=== PATIENT | male | born 1945 | race Caucasian/White ===

== ENCOUNTER 2016-10-24 15:24 | Inpatient (IN) | payer MEDICAID ==
[~2016-10-24] VITALS: Ht 162.6 cm; Wt 54.0 kg
--- NOTE | 2016-10-24 15:24 | NUR ---
NIURKARA 41 FROM [facility] FOR SOB, SPO2=82% FOOD MANAGEMENT AIDE, BREATHING TREATMENT X 1 IN FIELD. PT PLACED IN GOWN AND MONITOR. MD AT BEDSIDE FOR EVAL.
--- NOTE | 2016-10-24 15:44 | NUR ---
ROLL FORMING MACHINE SET UP MECHANIC AT BEDSIDE
[2016-10-24 15:56] LABS: ABG BASE EXCESS 2.8 mmol/L; ABG OXYGEN SATURATION 94.5 % (92.0-98.5); ABG PCO2 36.9 mmHg (35.0-45.0); ABG PH 7.472 (7.350-7.450); AaDO2 595.1 mmHg; COHb 0.7 % (0.5-1.5); MetHb 0.3 % (0.0-1.5); O2Hb 93.6 % (94.0-97.0); SITE, ABG Right Radial
--- NOTE | 2016-10-24 16:15 | NUR ---
SPOKE TO NURSING SUP FOR TELE BED
[2016-10-24 16:31] LABS: BASOPHILS % (AUTO) 0.4 % (0.0-2.0); EOSINOPHILS % (AUTO) 0.1 % (0.0-6.0); HEMATOCRIT 36 % (39-51); HEMOGLOBIN 11.3 g/dL (13.5-17.5); LYMPHOCYTES # (AUTO) 0.9 /CMM (0.8-4.8); LYMPHOCYTES % (AUTO) 18.6 % (20.0-44.0); MEAN CORPUSCULAR HEMOGLOBIN 23 PG (26.0-33.0); MEAN CORPUSCULAR HGB CONC 32 g/dl (31.0-36.0); MEAN CORPUSCULAR VOLUME 73 fL (80-96); MONOCYTES # (AUTO) 0.1 /CMM (0.1-1.30); MONOCYTES % (AUTO) 1.4 % (2.0-12.0); NEUTROPHILS # (AUTO) 3.8 /CMM (1.8-8.9); NEUTROPHILS % (AUTO) 79.5 % (43.0-81.0); PLATELET COUNT (AUTO) 312 /CMM (150-450); RDW COEFFICIENT OF VARIATION 28.8 (11.5-15.0); RED BLOOD CELL COUNT(AUTO) 4.88 MIL/uL (4.5-6.0); WHITE BLOOD COUNT (AUTO) 4.8 K/uL (4.3-11.0)
[2016-10-24 16:45] LABS: INR 1.3 (0.87-1.13); PROTHROMBIN TIME 13.7 SECS (9.5-12.7)
[2016-10-24 16:49] LABS: ALANINE AMINOTRANSFERASE 18 U/L (12-78); ALKALINE PHOSPHATASE 167 U/L (46-116); ASPARTATE AMINOTRANSFERASE 35 U/L (15-37); BILIRUBIN,DIRECT 0.2 mg/dL (0.0-0.2); BILIRUBIN,TOTAL 0.4 mg/dL (0.2-1.0); CARBON DIOXIDE 32 mmol/L (21-32); CHLORIDE 109 mmol/L (98-107); CREATININE 1.1 mg/dL (0.6-1.3); GLUCOSE 112 mg/dL (74-106); POTASSIUM 3.5 mmol/L (3.5-5.1); SODIUM SERUM 148 mmol/L (136-145); TOTAL PROTEIN, SERUM 5.4 g/dL (6.4-8.2); UREA NITROGEN, BLOOD 45 mg/dL (7-18)
[2016-10-24 16:50] LABS: TROPONIN I 0.058 ng/mL (0.00-0.056)
[2016-10-24] MEDS ORDERED: IV SET PRIMARY 1 EA INFUS.SET MC ONE ×2 (16:55→18:01)
[2016-10-24] MEDS ORDERED: PIPERACILLIN /TAZOBACTAM 3.375 G VIAL IV ONE (16:55)
[2016-10-24] MEDS ORDERED: PIPERACILLIN /TAZOBACTAM 3.375 G in IV D5W 50 ML IV ONE (17:00)
--- NOTE | 2016-10-24 17:17 | NUR ---
CALLED NURSING SUP FOR TELE BED
--- NOTE | 2016-10-24 17:18 | NUR ---
PAGED REJECTOR FOR [facility] DR CHANDA NOWAK
--- NOTE | 2016-10-24 17:23 | NUR ---
TELE [id number]
[2016-10-24 17:30] LABS: B-TYPE NATRIURETIC PEPTIDE 18623 PG/ML (0-125)
[2016-10-24] MEDS ORDERED: IV NS 0.9% 1,000 ML BAG IV ONE (17:30)
[2016-10-24] MEDS ORDERED: HYDROCODONE/APAP 5/325MG 1 EACH TABLET PO PRN (18:00)
[2016-10-24] MEDS ORDERED: MAGNESIUM HYDROXIDE 30 ML UDC PO PRN (18:00)
[2016-10-24] MEDS ORDERED: ACETAMINOPHEN 325 MG TABLET PO PRN (18:00)
[2016-10-24] MEDS ORDERED: MAG HYDROX/AL HYDROX/SIMETH 30 ML UDC PO PRN (18:00)
[2016-10-24] MEDS ORDERED: ONDANSETRON HCL/PF 4 MG/2 ML VIAL IVP PRN (18:00)
[2016-10-24] MEDS ORDERED: ZOLPIDEM TARTRATE 5 MG TABLET PO PRN (18:00)
[2016-10-24] MEDS ORDERED: MORPHINE SULFATE INJ 2 MG/ML DISP.SYRIN IV PRN (18:00)
[2016-10-24] MEDS ORDERED: Z GUARD REMEDY 2 OZ OINT TP PRN (18:00)
[2016-10-24] MEDS ORDERED: IV NS 0.9% 500 ML IV ONE (18:01)
[2016-10-24] MEDS ORDERED: CT SWABBABLE VALVE TRANS SET 1 EA INFUS.SET MC ONE (18:08)
[2016-10-24] MEDS ORDERED: IOHEXOL-300 100 ML VIAL IV ONE (18:08)
[2016-10-24] MEDS ORDERED: IV NS 0.9% 250 ML IV ONE (18:08)
--- NOTE | 2016-10-24 18:10 | NUR ---
PT TO CT
--- NOTE | 2016-10-24 18:12 | NUR ---
REPORT GIVEN TO FELA HANCOCK FOR FREDERICK
--- NOTE | 2016-10-24 18:24 | NUR ---
PAGED HARMONIC ANALYST FOR MIDLINE PLACEMENT. PER HARMONIC ANALYST LORIE HANCOCK WILL PLACE.
--- NOTE | 2016-10-24 18:34 | NUR ---
LORIE HANCOCK AT [facility] FOR PLACEMENT.
--- NOTE | 2016-10-24 18:43 | NUR ---
MIDLINE PLACED NEHAL 18G, FLUSHING WELL.
--- NOTE | 2016-10-24 19:05 | NUR ---
PT APPEARS TO BE RESTING COMFORTABLY WITH NO S/S OF PAIN OR DISTRESS.
--- NOTE | 2016-10-24 20:05 | NUR ---
PT'S O2 SAT IS 89% ON 2L VIA NC. PT IS MOUTH BREATHING. PT WAS PLACED ON A SIMPLE MASK AT 5L.
[2016-10-24] MEDS ORDERED: LACTULOSE 10 G/15 ML UDC (PYXIS) PO PRN (20:30)
--- NOTE | 2016-10-24 21:17 | NUR ---
PT TRANSPORTED TO TELE VIA [facility] PER PROTOCOL.
[2016-10-24 21:30] VITALS: BP 113/66
--- NOTE | 2016-10-24 21:30 | NUR ---
RN ADMITTING NOTES Pt ARRIVED TO THE FLOOR VIA GURNEY. SLIGHT SOB NOTED. ON FACEMASK 4L. EQUAL CHEST RISE AND FALL. Pt IS A/OX2, AWARE OF NAME AND TIME, BUT IS VERY FORGETFUL AND SEEMS CONFUSED AT TIMES. Pt IS VERBAL AND ABLE TO COMMUNICATE. IV ACCESS ON NEHAL MIDLINE, LAC #18G, & LFA #20G, ALL SL. DÍAZ CATHETER IN PLACE. SAFETY MEASURES IN PLACE. BED LOW, LOCKED, HOB ELEVATED, SIDE RAILS UP, CALL LIGHT AND BEDSIDE TABLE WITHIN REACH. WILL CONTINUE TO MONITOR Pt THROUGHOUT THE NIGHT FOR SAFETY.
[2016-10-24] MEDS: ENOXAPARIN SODIUM 40 MG/0.4 ML DISP.SYRIN SQ SCH (23:10)
[2016-10-25] VITALS (8 sets, daily range): BP systolic 92–115; BP diastolic 54–70
--- NOTE | 2016-10-25 06:40 | NUR ---
RN CLOSING NOTES NO SIGNIFICANT CHANGES DURING THE NIGHT. NO S/S OF ACUTE DISTRESS OR SOB NOTED. ALL NEEDS MET AND ATTENDED TO. SAFETY MEASURES IN PLACE. TELE READING SR 82 WITH BBB & PVC's. WILL ENDORSE TO DAYSHIFT RN FOR Pt's FREDERICK.
[2016-10-25 06:47] LABS: HEMATOCRIT 33 % (39-51); HEMOGLOBIN 10.5 g/dL (13.5-17.5); LYMPHOCYTES # (AUTO) 0.7 /CMM (0.8-4.8); LYMPHOCYTES % (AUTO) 5.6 % (20.0-44.0); MEAN CORPUSCULAR HEMOGLOBIN 24 PG (26.0-33.0); MEAN CORPUSCULAR HGB CONC 32 g/dl (31.0-36.0); MEAN CORPUSCULAR VOLUME 74 fL (80-96); MONOCYTES % (AUTO) 0.4 % (2.0-12.0); NEUTROPHILS # (AUTO) 11.5 /CMM (1.8-8.9); PLATELET COUNT (AUTO) 257 /CMM (150-450); RDW COEFFICIENT OF VARIATION 28.3 (11.5-15.0); RED BLOOD CELL COUNT(AUTO) 4.42 MIL/uL (4.5-6.0); WHITE BLOOD COUNT (AUTO) 12.2 K/uL (4.3-11.0)
[2016-10-25 06:54] LABS: ALBUMIN 1.7 g/dL (3.4-5.0); BILIRUBIN,TOTAL 0.4 mg/dL (0.2-1.0); CALCIUM, SERUM 7.5 mg/dL (8.5-10.1); CREATININE 0.9 mg/dL (0.6-1.3); MAGNESIUM 2.2 mg/dL (1.8-2.4); PHOSPHORUS 3.5 mg/dL (2.5-4.9); POTASSIUM 3.3 mmol/L (3.5-5.1); TOTAL PROTEIN, SERUM 5.1 g/dL (6.4-8.2)
--- NOTE | 2016-10-25 07:35 | NUR ---
RN NOTES PATIENT RECEIVED RESTING COMFORTABLY IN BED, ORIENTED TO SELF ONLY AT THIS TIME, ABLE TO MAKE NEEDS KNOWN. NPO PER ORDERS. RESPIRATIONS EVEN AND UNLABORED, DENIES ANY PAIN OR DISCOMFORT AT THIS TIME. IV ACCESS PATENT INTACT, NO REDNESS OR INFILTRATION NOTED. CONTINUED ON TELEMETRY MONITORING, KEPT CLEAN DRY AND COMFORTABLE, CALL LIGHT WITHIN EASY REACH WILL CONTINUE TO MONITOR
[2016-10-25] MEDS ORDERED: BISA10SU8 RC (08:11)
[2016-10-25] MEDS ORDERED: RISP0.253 PO (08:11)
[2016-10-25] MEDS ORDERED: CALC-866 PO (08:11)
[2016-10-25] MEDS ORDERED: SPIR25TA4 PO (08:11)
[2016-10-25] MEDS ORDERED: ZINC220C8 PO (08:11)
[2016-10-25] MEDS ORDERED: LISI10TA5 PO (08:11)
[2016-10-25] MEDS ORDERED: ACET-868 PO (08:11)
[2016-10-25] MEDS ORDERED: AMIN30LI4 PO (08:11)
[2016-10-25] MEDS ORDERED: MAGN400O6 PO (08:11)
[2016-10-25] MEDS ORDERED: NA P133E RC (08:11)
[2016-10-25] MEDS ORDERED: MULT-659 PO (08:11)
[2016-10-25] MEDS ORDERED: ASCO500T8 PO (08:11)
[2016-10-25] MEDS ORDERED: ARGI1POW13 PO (08:11)
[2016-10-25] MEDS ORDERED: ASPI-991 PO (08:11)
[2016-10-25] MEDS ORDERED: METO25TA6 PO (08:11)
[2016-10-25] MEDS: PANTOPRAZOLE 40 MG VIAL IV SCH (08:30)
[2016-10-25] MEDS: FUROSEMIDE 40 MG/4 ML VIAL IV SCH (09:00)
[2016-10-25] MEDS ORDERED: FUROSEMIDE 40 MG/4 ML VIAL IV SCH (09:00)
[2016-10-25] MEDS ORDERED: IV NS 0.9% 0 ML IV ONE (11:24)
[2016-10-25] MEDS ORDERED: IV SET PRIMARY PUMP SET 1 EA INFUS.SET MC ONE ×2 (11:24→12:22)
[2016-10-25] MEDS ORDERED: IV D5/0.45 NACL 1,000 ML IV PRN (12:00)
[2016-10-25] MEDS ORDERED: SECONDARY IV SET 1 EA INFUS.SET MC ONE (12:22)
[2016-10-25] MEDS: POTASSIUM CL. PREMIX PERIPHER. 50 ML IV SCH ×3 (12:27→17:28)
[2016-10-25] MEDS: PIPERACILLIN /TAZOBACTAM 3.375 G in IV D5W 50 ML IV SCH ×2 (12:43→17:27)
[2016-10-25] MEDS ORDERED: IOHEXOL-300 100 ML VIAL IV ONE (15:17)
[2016-10-25] MEDS ORDERED: IV NS 0.9% 250 ML IV ONE ×2 (15:17→15:57)
[2016-10-25] MEDS ORDERED: IOHEXOL-350 100 ML VIAL IV ONE (15:57)
[2016-10-25] MEDS ORDERED: CT SWABBABLE VALVE TRANS SET 1 EA INFUS.SET MC ONE (15:57)
--- NOTE | 2016-10-25 19:00 | NUR ---
BLEACH MAKER NOTES RECEIVED PATIENT IN BED AWAKE, ALERT AND ORIENTED X 2. IN STABLE CONDITION NO S/S OF DISTRESS NOTED. IV SITE INTACT W/ NO S/S OF INFILTRATION NOTED. CALL LIGHT WITHIN REACH. BED AT LOW POSITION AND LOCKED FOR SAFETY. WILL CONTINUE TO MONITOR ACCORDINGLY.
--- NOTE | 2016-10-25 19:33 | NUR ---
RN NOTES PATIENT RESTING COMFORTABLY IN BED, ORIENTED TO SELF ONLY AT THIS TIME, ABLE TO MAKE NEEDS KNOWN. NPO PER ORDERS. RESPIRATIONS EVEN AND UNLABORED, DENIES ANY PAIN OR DISCOMFORT AT THIS TIME. IV ACCESS PATENT INTACT, NO REDNESS OR INFILTRATION NOTED. CONTINUED ON TELEMETRY MONITORING, KEPT CLEAN DRY AND COMFORTABLE, CALL LIGHT WITHIN EASY REACH ENDORSED TO NEXT SHIFT FOR CONTINUITY OF CARE
[2016-10-25] MEDS: ENOXAPARIN SODIUM 40 MG/0.4 ML DISP.SYRIN SQ SCH (21:13)
[2016-10-25] MEDS ORDERED: PIPERACILLIN /TAZOBACTAM 3.375 G in IV D5W 50 ML IV SCH (23:00)
[2016-10-26] VITALS (10 sets, daily range): BP systolic 103–129; BP diastolic 64–70
[2016-10-26] MEDS: PIPERACILLIN /TAZOBACTAM 3.375 G in IV D5W 50 ML IV SCH ×4 (00:19→17:05)
--- NOTE | 2016-10-26 06:38 | NUR ---
[employer] OFFICER CLOSING NOTES PATIENT COMFORTABLY IN BED ASLEEP AND EASILY AWAKEN, ALERT AND VERBALLY X 1 ON ATB WITH NO A/R NOTED. RESPONSIVE DENIES PAIN OR DISTRESS, RESPONDS APPROPRIATELY TO VERBAL STIMULI, RESPIRATIONS EVEN UNLABORED BREATH SOUNDS. APICAL PULSE REGULAR; ON 02 4LPM VIA NC 02 SAT 96% ON BUSINESS SERVICES VICE PRESIDENT. PATIENT IN STABLE CONDITION WITH NO SOB NO S/S OF DISTRESS NO NAUSEA AND VOMITING NO HEADACHE NO PAIN, NO COMPLAIN OF CHEST PAIN SAFETY ENVIRONMENT PROVIDED. FREE OF CLUTTERS, NEEDS ATTENDED AND ANTICIPATED, NURSING CARE RENDERED, KEPT CLEAN AND DRY AND COMFORTABLE. ALL DUE MEDS WAS GIVEN. CALL LIGHT IN REACH, BED LOWERED AND LOCKED, SR X2 FOR SAFETY AND WILL ENDORSE CONTINUE PLAN OF CARE.
--- NOTE | 2016-10-26 06:42 | NUR ---
FC INTACT DRAINING YELLOW VIA GRAVITY WITH NO SEDIMENTS NO HEMATURIA NO CLOUDINESS
--- NOTE | 2016-10-26 07:31 | NUR ---
RN NOTES PATIENT RESTING COMFORTABLY IN BED, ORIENTED TO SELF ONLY AT THIS TIME, ABLE TO MAKE NEEDS KNOWN. NPO PER ORDERS. RESPIRATIONS EVEN AND UNLABORED, DENIES ANY PAIN OR DISCOMFORT AT THIS TIME. IV ACCESS PATENT INTACT, NO REDNESS OR INFILTRATION NOTED. CONTINUED ON TELEMETRY MONITORING, KEPT CLEAN DRY AND COMFORTABLE, CALL LIGHT WITHIN EASY REACH, WILL CONTINUE TO MONITOR
[2016-10-26] MEDS: FUROSEMIDE 40 MG/4 ML VIAL IV SCH (08:25)
[2016-10-26] MEDS: PANTOPRAZOLE 40 MG VIAL IV SCH (08:25)
[2016-10-26 09:28] LABS: BASOPHILS % (AUTO) 0.1 % (0.0-2.0); HEMATOCRIT 34 % (39-51); HEMOGLOBIN 10.8 g/dL (13.5-17.5); LYMPHOCYTES # (AUTO) 0.8 /CMM (0.8-4.8); LYMPHOCYTES % (AUTO) 7.3 % (20.0-44.0); MEAN CORPUSCULAR HEMOGLOBIN 23 PG (26.0-33.0); MEAN CORPUSCULAR HGB CONC 32 g/dl (31.0-36.0); MEAN CORPUSCULAR VOLUME 73 fL (80-96); MONOCYTES # (AUTO) 0.2 /CMM (0.1-1.30); MONOCYTES % (AUTO) 1.7 % (2.0-12.0); NEUTROPHILS % (AUTO) 90.9 % (43.0-81.0); PLATELET COUNT (AUTO) 255 /CMM (150-450); RDW COEFFICIENT OF VARIATION 28.6 (11.5-15.0); RED BLOOD CELL COUNT(AUTO) 4.67 MIL/uL (4.5-6.0)
[2016-10-26 09:40] LABS: CALCIUM, SERUM 7.6 mg/dL (8.5-10.1); POTASSIUM 3.2 mmol/L (3.5-5.1)
[2016-10-26 09:59] LABS: THYROID STIMULATING HORMONE 7.962 uIU/mL (0.358-3.74)
[2016-10-26] MEDS ORDERED: FEE PK DOSING 1 MIN EA MC ONE (10:43)
--- NOTE | 2016-10-26 10:53 | NUR ---
WOUND CARE CONSULT: PT PRESENTS WITH UNSTAGEABLE ULCER TO SACRUM, PRESENT ON ADMISSION. RECOMMENDATIONS MADE FOR SKIN PROTECTION AND WOUND CARE. DISCUSSED WITH NURSING STAFF. SURGICAL CONSULT CALLED TO DR SANTA BY DR NOWAK. CHIN ISOFLEX LOW AIRLOSS BED TO BE PLACED. IN AGREEMENT WITH PLAN OF CARE. Addendum: 10/26/16 at 1054 by MARCO ANTONIO MATHEWS WNDNU Amended: Links added.
[2016-10-26] MEDS ORDERED: VANCOMYCIN 1 GM in IV D5W 250 ML IV SCH (11:00)
[2016-10-26] MEDS ORDERED: HYDROGEL DRESSING 90 GM TUBE TP PRN (11:00)
[2016-10-26] MEDS ORDERED: SECONDARY IV SET 1 EA INFUS.SET MC ONE ×2 (11:05→23:55)
[2016-10-26] MEDS: VANCOMYCIN 0.75 GM in IV D5W 250 ML IV SCH ×2 (11:32→23:57)
[2016-10-26] MEDS: POTASSIUM CL. PREMIX PERIPHER. 50 ML IV SCH ×4 (13:39→18:08)
--- NOTE | 2016-10-26 14:40 | NUR ---
Social service consult requested by Dr. Magana for possible homelessness. Per H&P report by Dr. Magana, pt. is a 71 year old male with PMHx of Liver cirrhosis, abdominal ascites, Hypertension, GERD, PUD, chronic anemia, psychosis. Pt. was brought in by EMS for low saturation of 82 % on RA. Patient was placed on supplemental oxygen en route to [place] which improved to 93 %. Per medical report, patient was recently admitted for GI bleed and coffee ground emesis. In the ED, patient c/o constant, moderate shortness of breath. SW met with pt. bedside. Pt. is A&O x 1. Pt. appears confused. Pt. is not homeless and resides at [facility] located at [address] [place] [address]. [place] [id number] . JEREMIAS contacted enterprise application administrator Adam and confirmed that pt. does reside at [facility].
[2016-10-26] MEDS: HYDROGEL DRESSING 90 GM TUBE TP SCH (16:55)
--- NOTE | 2016-10-26 17:58 | NUR ---
RN NOTES PT SEEN BY DR. HENSLEY, WILL CARRY OUT ORDERS AND CONTINUE TO MONITOR APPROPRIATE
--- NOTE | 2016-10-26 18:00 | NUR ---
RN NOTES MD MADE AWARE OF PT MED RECONCILIATION, MD TO REVIEW.
--- NOTE | 2016-10-26 18:42 | NUR ---
RN NOTES PATIENT AT REFUSING TO TURN AND REPOSITION AT TIMES, NURSING EDUCATION REINFORCED, WILL CONTINUE TO MONITOR
--- NOTE | 2016-10-26 19:22 | NUR ---
RN NOTES PATIENT RESTING COMFORTABLY IN BED, ORIENTED TO SELF ONLY AT THIS TIME, ABLE TO MAKE NEEDS KNOWN. NPO PER ORDERS, MAY HAVE ICE CHIPS PER MD. RESPIRATIONS EVEN AND UNLABORED, DENIES ANY PAIN OR DISCOMFORT AT THIS TIME. IV ACCESS PATENT INTACT, NO REDNESS OR INFILTRATION NOTED. MD MADE AWARE OF PT MED RECONCILIATION, MD TO REVIEW. KEPT CLEAN DRY AND COMFORTABLE, CALL LIGHT WITHIN EASY REACH ENDORSED TO NEXT SHIFT FOR CONTINUITY OF CARE
--- NOTE | 2016-10-26 19:30 | NUR ---
ms rn initial notes: received report from edith schuster. pt in bed, sleeping, arouses to tactile stimuli, pt able to follow command, a/o x1-2, on 4l via nc, respiration even and unlabored, on npo, mansi midline patent and flushing well, on hl. noted right hand and finger to be cyanotic, warm blanket provided, and will monitor again the color and circulation. noted to have palpable radial pulses, with good capillary noted. ble offloaded. pt refusing scd, education provided to the pt. safety precautions for fall initiated call light in reach will continue to monitor
--- NOTE | 2016-10-26 19:43 | NUR ---
surgery consult: seen by dr mcbride, went to pt's room, pt a/o x1-2, asked by md if he would like to have surgery, pt refused, stating he doesnt want any surgery.
--- NOTE | 2016-10-26 20:05 | NUR ---
RN NOTES: NOTED PT'S ABDOMEN TO BE DISTENDED, PT HAS DÍAZ CATHETER IN PLACED DRAINING YELLOW YELLOW COLORED URINE ABOUT 50ML, PT HAS ABDOMINAL ASCITES, DENIES ANY PAIN OR DISCOMFORT UPON PALPATING THE ABDOMEN, WILL CONTINUE TO MONITOR
--- NOTE | 2016-10-26 20:30 | NUR ---
RN NOTES: PT'S ANKLE AND FEET NOTED TO BE SWOLLEN, ALSO NOTED TOENAILS TO BE CYANOTIC, WARM BLANKET PROVIDED, WILL MONITOR FOR ANY CHANGES IN COLOR, BILATERAL PEDAL PULSES PALPABLE AND INTACT, UNABLE TO ASSESS CAPILLARY REFILL ON TOENAIL, RAILWAY PATROL OFFICER HILL MADE AWARE
[2016-10-26] MEDS: ENOXAPARIN SODIUM 40 MG/0.4 ML DISP.SYRIN SQ SCH (21:00)
--- NOTE | 2016-10-26 21:00 | NUR ---
ASSESSMENT: NOTED PT'S HAND AND FEET TO BE CYANOTIC, PLACED WARM BLANKET, RECHECKED AFTER 30MINS COLOR IS A LOT BETTER HOWEVER UPON CHECKING PT'S SATURATION HE'S ONLY 88-89% ON 4L VIA NC, DECIDED TO PUT PT ON TELEMONITORING FOR OBSERVATION, ALSO PUT PT ON MASK VS TAKEN AND RECORDED, CURRENT SAT IS 93%, WILL CONTINUE TO MONITOR
--- NOTE | 2016-10-26 21:30 | NUR ---
TELE READING: CURRENTLY ON SINUS HR 60
--- NOTE | 2016-10-26 21:43 | NUR ---
CHANDELIER MAKER: 2142 --- CALLED RAPID RESPONSE FOR THE PT, PT DESAT LOWEST 68-88% THEN GO BACK UP TO 90'S, ALSO HR FLUCTUATING FROM 40'S TO 60'S, PERIPHERAL CYANOSIS NOTED, LOW URINE OUTPUT 50ML SINCE 1999 2146---- CHECKED BLOOD SUGAR AND REVEAL 23, PT ON NPO X2DAYS DUE TO ILEOCECAL OBSTRUCTION, NO IVF PER MD DUE TO CHF 2149 ---- CHANDELIER MAKER TEAM CAME INCLUDING KARISSA MASTERS 2151--- D50 GIVEN BY KARISSA MON 2152--- EPIC DEBARKER OPERATOR WAS LOUANN LAWTON NP DEBARKER OPERATOR TONIGHT 2204--- RECHECKED BLOOD SUGAR, AT FIRST RESULT WAS 16 TAKEN ON RIGHT HAND/FINGER, RECHECK AGAIN ON RIGHT FOOT/GREAT TOE RESULT IS 65, ALSO DO STAT BLOOD SUGAR RANDOM 2209---- CALLED EPIC TALKED TO LOAUNN GALDAMEZ, RELAYED ASSESSMENT PER MIGRATORY GAME BIRD BIOLOGIST TO DO STAT ABG STAT CXR AND TEXT HER FOR RESULT OR ANY CHANGES 2221--- RT CAME TO DRAW ABG, ALSO CXR TECH CAME, TEAM ASSEMBLER CAME TO DRAW BLOOD
[2016-10-26] MEDS ORDERED: DEXTROSE 50%-WATER 50 ML DISP.SYRIN ONE (21:45)
--- NOTE | 2016-10-26 21:50 | NUR ---
RN NOTES: OVERRODE DEXTROSE 50% AND ADMINISTERED VIA IV FOR BLOOD SUGAR : 23 MG/DL. CN AWARE, RAPID RESPONSE ONGOING.
[2016-10-26 22:59] LABS: ABG OXYGEN SATURATION 97.2 % (92.0-98.5); ABG PCO2 40.1 mmHg (35.0-45.0); ABG PH 7.462 (7.350-7.450); ABG PO2 156.2 mmHg (75.0-100.0); AaDO2 111.8 mmHg; COHb 0.3 % (0.5-1.5); MetHb 0.4 % (0.0-1.5); O2Hb 96.5 % (94.0-97.0); SITE, ABG Left Radial; VENT MODE, BG simple mask
--- NOTE | 2016-10-26 23:04 | NUR ---
ABG RESULT: RESULT OF ABG CAME BACK, RELAYED TO LOUANN REPAIRER WELDING EQUIPMENT, ALOS RESULT OF CXR RELAYED TO REPAIRER WELDING EQUIPMENT PLUSH WEAVER PER LOUANN, TO DO BREATHING TX Q6HR ATROVENT AND ALBUTEROL, INFORMED REPAIRER WELDING EQUIPMENT REGARDING PERIPHERAL CYANOSIS, STILL PRESENT, REPAIRER WELDING EQUIPMENT STATED ORDER FULL SET OF LABS AND SHE WILL READ ALL NOTES FROM PREVIOUS MD, ALSO RESULT OF RANDOM GLUCOSE CAME BACK, RESULT IS 114, PER MD DO NOT GIVE ANOTHER D50
[2016-10-26] MEDS ORDERED: ALBUTEROL FS 2.5 MG/0.5 ML VIAL.NEB ONE (23:12)
[2016-10-26] MEDS ORDERED: IPRATROPIUM NEB FS 0.5 MG/2.5 ML AMPUL.NEB ONE (23:13)
[2016-10-26] MEDS: ALBUTEROL FS 2.5 MG/0.5 ML VIAL.NEB NEB SCH (23:21)
[2016-10-26] MEDS: IPRATROPIUM NEB FS 0.5 MG/2.5 ML AMPUL.NEB NEB SCH (23:22)
--- NOTE | 2016-10-26 23:44 | NUR ---
NEW ORDER: PER CHICKEN TENDER LOUANN, TO DO BLOOD SUGAR CHECK Q4HR, ALSO SHE STATED TO CALL HER IF PT STARTED TO BE VERY SLEEPY AND DESAT, SHE MIGHT PUT PT ON BIPAP, BUT SHE STATED TO CALL HER FIRST AND SHE ALSO WILL BE COMING LATER ON
--- NOTE | 2016-10-26 23:45 | NUR ---
IVF: PER RUDOLPH LEW, NO IVF DUE TO CHF, PLACED PT ON TELE CONTINUE ALL MEDS
[2016-10-26] MEDS ORDERED: SET RED CAP 1 EA INFUS.SET MC ONE ×2 (23:55→23:56)
[2016-10-27] VITALS: BP 104/59
--- NOTE | 2016-10-27 | NUR ---
LOVENOX: PER TRANSMISSION DESIGN ENGINEER LOUANN, OKAY TO GIVE LOVENOX, HOWEVER PT REFUSING MEDICATION, PT YELLING AND STATED HE WILL CALL POLICE, HE'S ALSO REFUSING BLOOD DRAW, MEDICATION NOT ADMINISTERED AT THIS TIME, EDUCATE PT REGARDING MEDICATION RISK AND BENEFITS
[2016-10-27 00:13] LABS: BASOPHILS # (AUTO) 0.1 /CMM (0.0-0.2); BASOPHILS % (AUTO) 0.4 % (0.0-2.0); HEMATOCRIT 37 % (39-51); HEMOGLOBIN 11.8 g/dL (13.5-17.5); LYMPHOCYTES # (AUTO) 1.2 /CMM (0.8-4.8); MEAN CORPUSCULAR HEMOGLOBIN 24 PG (26.0-33.0); MEAN CORPUSCULAR HGB CONC 32 g/dl (31.0-36.0); MEAN CORPUSCULAR VOLUME 74 fL (80-96); MONOCYTES # (AUTO) 0.3 /CMM (0.1-1.30); MONOCYTES % (AUTO) 1.8 % (2.0-12.0); NEUTROPHILS # (AUTO) 13.3 /CMM (1.8-8.9); NEUTROPHILS % (AUTO) 89.8 % (43.0-81.0); PLATELET COUNT (AUTO) 281 /CMM (150-450); RDW COEFFICIENT OF VARIATION 28.7 (11.5-15.0); RED BLOOD CELL COUNT(AUTO) 5.02 MIL/uL (4.5-6.0); WHITE BLOOD COUNT (AUTO) 14.8 K/uL (4.3-11.0)
--- NOTE | 2016-10-27 00:13 | NUR ---
ACCU CHECK: BLOOD SUGAR CHECKED AND REVEAL 97,NO COVERAGE, JUST BLOOD SUGAR CHECK, WILL MONITOR PT FOR ANY S/S OF HYPOGLYCEMIA
[2016-10-27 00:17] LABS: CALCIUM, SERUM 7.6 mg/dL (8.5-10.1); CREATININE 1.1 mg/dL (0.6-1.3)
[2016-10-27 00:23] LABS: ALBUMIN 1.7 g/dL (3.4-5.0); BILIRUBIN,TOTAL 0.7 mg/dL (0.2-1.0); MAGNESIUM 2.3 mg/dL (1.8-2.4); PHOSPHORUS 4.4 mg/dL (2.5-4.9); TOTAL PROTEIN, SERUM 5.2 g/dL (6.4-8.2)
[2016-10-27 01:02] LABS: BAND % (MANUAL) 1 % (0.0-5.0); LYMPHOCYTES % (MANUAL) 5 % (16-48); MONOCYTES % (MANUAL) 1 % (0-11.0); NEUTROPHILS % (MANUAL) 93 (42-76)
[2016-10-27] MEDS: BLOOD SUGAR DIAGNOSTIC 1 EACH STRIP IN SCH ×6 (01:14→21:10)
[2016-10-27] MEDS: PIPERACILLIN /TAZOBACTAM 3.375 G in IV D5W 50 ML IV SCH ×6 (01:14→23:01)
[2016-10-27] MEDS: ALBUTEROL FS 2.5 MG/0.5 ML VIAL.NEB NEB SCH ×4 (01:30→19:24)
[2016-10-27] MEDS: IPRATROPIUM NEB FS 0.5 MG/2.5 ML AMPUL.NEB NEB SCH ×4 (01:30→19:24)
--- NOTE | 2016-10-27 02:00 | NUR ---
JOY OPERATOR HELPER NOTES: LOUANN VALLES CAME TO SEE THE PT, PT MORE AWAKE AND VS STABLE, INFORMED POST DOC FELLOWSHIP REGARDING URINE OUTPUT STILL 50ML, POST DOC FELLOWSHIP NO NEW ORDERS, ALSO SHE STATED PLAN FOR THIS PT IS TO OBTAIN ADVANCE DIRECTIVE IN AM WHEN PT IS MORE COHERENT
[2016-10-27 04:00] VITALS: BP 113/71
--- NOTE | 2016-10-27 04:18 | NUR ---
AM CARE: ASSISTED ELECTRICIAN CONTROL EQUIPMENT IN PROVIDING BED BATH TO THE PT, ALSO WOUND CARE DONE ORDERED,
--- NOTE | 2016-10-27 05:16 | NUR ---
ACCU CHECK: BLOOD SUGAR CHECK AND REVEAL 75, NO INSUL;IN COVERAGE, ONLY BLOOD SUGAR CHECK PER STATION ENGINEER MAIN LINE LOUANN.
--- NOTE | 2016-10-27 06:11 | NUR ---
URINE OUTPUT: RUDOLPH LEW MADE AWARE OF PT'S URINE OUTPUT, UO IS 250, NO NEW ORDERS NOTED
--- NOTE | 2016-10-27 06:39 | NUR ---
NURSE ADVOCATE CLOSING NOTES: PT IN BED, REMAINS A/O X1-2, AWAKE, ON 4L VIA NC, SPO2 98-100%, NO SOB NOTED, REMAINS SINUS RHYTHM HR 65. DÍAZ CATHETER REMAINS IN PLACED. PT DENIES ANY PAIN OR DISCOMFORT, NO FACIAL GRIMACE NOTED, PT COOPERATIVE IN TURNING AND REPOSITIONING. NEHAL MIDLINE REMAINS PATENT AND FLUSHING WELL, ON HL. REMAINS NPO, SUCTION SET UP SECURED. BLE KEPT OFFLOADED. VS REMAINS STABLE, NEEDS ATTENDED. WILL ENDORSE TO DAY RN FOR FREDERICK.
[2016-10-27 06:43] LABS: CALCIUM, SERUM 7.6 mg/dL (8.5-10.1); CREATININE 1.1 mg/dL (0.6-1.3); POTASSIUM 3.6 mmol/L (3.5-5.1)
[2016-10-27 06:50] LABS: BASOPHILS % (AUTO) 0.2 % (0.0-2.0); HEMATOCRIT 36 % (39-51); HEMOGLOBIN 11.5 g/dL (13.5-17.5); LYMPHOCYTES % (AUTO) 7.1 % (20.0-44.0); MEAN CORPUSCULAR HEMOGLOBIN 24 PG (26.0-33.0); MEAN CORPUSCULAR HGB CONC 32 g/dl (31.0-36.0); MEAN CORPUSCULAR VOLUME 74 fL (80-96); MONOCYTES # (AUTO) 0.2 /CMM (0.1-1.30); MONOCYTES % (AUTO) 1.3 % (2.0-12.0); NEUTROPHILS # (AUTO) 13.2 /CMM (1.8-8.9); NEUTROPHILS % (AUTO) 91.4 % (43.0-81.0); PLATELET COUNT (AUTO) 267 /CMM (150-450); RDW COEFFICIENT OF VARIATION 28.9 (11.5-15.0); RED BLOOD CELL COUNT(AUTO) 4.87 MIL/uL (4.5-6.0); WHITE BLOOD COUNT (AUTO) 14.4 K/uL (4.3-11.0)
[2016-10-27 07:37] LABS: LYMPHOCYTES % (MANUAL) 8 % (16-48); MONOCYTES % (MANUAL) 1 % (0-11.0); NEUTROPHILS % (MANUAL) 91 (42-76)
--- NOTE | 2016-10-27 07:40 | NUR ---
WATER SYSTEMS DESIGNER OPENING NOTES RECEIVED PATIENT AWAKE IN BED, HEAD OF BED ELEVATED. ALERT AND ORIENTED X 1-2.PATIENT ON TELE MONITOR SINUS BRADYCARDIA HEART RATE OF 57. PATIENT ON 4LPM VIA NC. PATIENT ABLE TO MAKE NEEDS KNOWN. CALL LIGHT WITHIN PATIENT'S REACH. WILL CONTINUE TO MONITOR ACCORDINGLY.
[2016-10-27 08:00] VITALS: BP 111/65
[2016-10-27] MEDS ORDERED: IV SET PRIMARY PUMP SET 1 EA INFUS.SET MC ONE (08:19)
[2016-10-27] MEDS: PANTOPRAZOLE 40 MG VIAL IV SCH (08:37)
[2016-10-27] MEDS: FUROSEMIDE 40 MG/4 ML VIAL IV SCH (08:37)
[2016-10-27] MEDS: IV D5/0.45 NACL 1,000 ML IV PRN ×2 (08:41→22:52)
[2016-10-27] MEDS: HYDROGEL DRESSING 90 GM TUBE TP SCH (08:55)
[2016-10-27] MEDS: ASPIRIN 81 MG TAB.CHEW PO SCH (08:55)
[2016-10-27] MEDS: VANCOMYCIN 0.75 GM in IV D5W 250 ML IV SCH ×2 (11:54→23:34)
--- NOTE | 2016-10-27 12:30 | NUR ---
RN NOTES PATIENT WANTS TO CALL THE POLICE BECAUSE THE POLICE IS WAITING FOR HIM BECAUSE PATIENT STATED THAT HE IS NOT A PATIENT.
--- NOTE | 2016-10-27 13:10 | NUR ---
RN NOTES PATIENT IS DELUSIONAL, DR. DUARTE CAME TO ASSESS HIS BEHAVIOR.
[2016-10-27] MEDS ORDERED: risperiDONE 0.25 MG TABLET PO SCH ×2 (13:30)
--- NOTE | 2016-10-27 15:15 | NUR ---
RN NOTES PATIENT IS ASLEEP AND RESTING IN STABLE CONDITION WITH NO SOB OR DISTRESS NOTED
[2016-10-27 16:00] VITALS: BP 115/67
[2016-10-27] MEDS ORDERED: SECONDARY IV SET 1 EA INFUS.SET MC ONE (16:27)
[2016-10-27] MEDS: NEOMY SULF/BACITRAC ZN/POLY 15 GM TUBE TP SCH (16:32)
[2016-10-27] MEDS: SOD FERRIC GLUC 125 MG in IV NS 0.9% 100 ML IV SCH (16:32)
--- NOTE | 2016-10-27 19:16 | NUR ---
RN CLOSING NOTES ALL NEEDS PROVIDED, ATTENDED AND ANTICIPATED. ON TELE MONITOR SR HEART RATE OF 61. KEPT PATIENT CLEAN AND COMFORTABLE IN BED, CALL LIGHT WITHIN PATIENT REACH, WILL CONTINUE TO MONITOR ACCORDINGLY. ENDORSED TO NEXT SHIFT RN TO CONTINUE CARE
--- NOTE | 2016-10-27 19:50 | NUR ---
MS RN INITIAL NOTES: received report from antoine schuster. pt in bed, awake, asking for mocha coffee, pt able to follow command, a/o x1-2, on 4l via nc, respiration even and unlabored, on npo, on continuous pulse ox satting 98-100%, also pt dc telemetry but still on tele monitor for observation, currently sinus alis hr 55, mansi midline patent and flushing well, infusing with d5 1/2 ns at 75ml/hr. noted to have palpable radial pulses and pedal pulses, with good capillary noted. color of pt's hand and feet a lot better compared to last night. ble offloaded.safety precautions for fall initiated call light in reach will continue to monitor
[2016-10-27 20:00] VITALS: BP 97/56
--- NOTE | 2016-10-27 21:00 | NUR ---
accu check: blood sugar check and reveal 79, pt on npo but receiving fluids d5 1/2 ns at 75ml/hr
[2016-10-27] MEDS: ENOXAPARIN SODIUM 40 MG/0.4 ML DISP.SYRIN SQ SCH (21:09)
[2016-10-28] VITALS: BP 122/75
[2016-10-28] MEDS: BLOOD SUGAR DIAGNOSTIC 1 EACH STRIP IN SCH ×6 (00:27→20:12)
--- NOTE | 2016-10-28 00:27 | NUR ---
ACCU CHECK: CHECK BLOOD SUGAR AND REVEAL 118, WILL CONTINUE TO MONITOR
[2016-10-28] MEDS: IPRATROPIUM NEB FS 0.5 MG/2.5 ML AMPUL.NEB NEB SCH ×4 (01:09→19:34)
[2016-10-28] MEDS: ALBUTEROL FS 2.5 MG/0.5 ML VIAL.NEB NEB SCH ×4 (01:09→19:34)
[2016-10-28] MEDS: PIPERACILLIN /TAZOBACTAM 3.375 G in IV D5W 50 ML IV SCH ×4 (05:34→23:06)
--- NOTE | 2016-10-28 05:34 | NUR ---
ACCU CHECK: BLOOD SUGAR CHECK AND REVEAL 83, WILL CONTINUE TO MONITOR
--- NOTE | 2016-10-28 06:34 | NUR ---
MS RN CLOSING NOTES: PT IN BED, REMAINS A/O X1-2, AWAKE, ON 2L VIA NC, SPO2 98-100%, STILL ON CONTINUOUS PULSE OX. NO SOB NOTED, REMAINS SINUS RHYTHM HR 60.NEHAL MIDLINE REMAINS PATENT AND FLUSHING WELL,INFUSING WITH D5 1/2 NS AT 75ML/HR. DÍAZ CATHETER REMAINS IN PLACED. PT DENIES ANY PAIN OR DISCOMFORT, NO FACIAL GRIMACE NOTED. REMAINS NPO, SUCTION SET UP SECURED. BLE KEPT OFFLOADED. VS REMAINS STABLE, NEEDS ATTENDED. WILL ENDORSE TO DAY RN FOR FREDERICK
[2016-10-28 06:55] LABS: BASOPHILS # (AUTO) 0.1 /CMM (0.0-0.2); BASOPHILS % (AUTO) 0.6 % (0.0-2.0); HEMATOCRIT 37 % (39-51); HEMOGLOBIN 11.5 g/dL (13.5-17.5); LYMPHOCYTES # (AUTO) 0.8 /CMM (0.8-4.8); LYMPHOCYTES % (AUTO) 6.5 % (20.0-44.0); MEAN CORPUSCULAR HEMOGLOBIN 24 PG (26.0-33.0); MEAN CORPUSCULAR HGB CONC 32 g/dl (31.0-36.0); MEAN CORPUSCULAR VOLUME 75 fL (80-96); MONOCYTES # (AUTO) 0.2 /CMM (0.1-1.30); MONOCYTES % (AUTO) 1.3 % (2.0-12.0); NEUTROPHILS # (AUTO) 11.8 /CMM (1.8-8.9); NEUTROPHILS % (AUTO) 91.6 % (43.0-81.0); PLATELET COUNT (AUTO) 261 /CMM (150-450); RDW COEFFICIENT OF VARIATION 29.3 (11.5-15.0); RED BLOOD CELL COUNT(AUTO) 4.91 MIL/uL (4.5-6.0); WHITE BLOOD COUNT (AUTO) 12.9 K/uL (4.3-11.0)
--- NOTE | 2016-10-28 07:58 | NUR ---
AM RN NOTES RECEIVED PT IN STABLE CONDITION, AWAKE RESTING IN BED COMFORTABLE AND WATCHING TV, NO SOB OR DISTRESS NOTED, NO PAIN OR DISCOMFORT, WILL MONITOR.
[2016-10-28 08:00] VITALS: BP 129/76
[2016-10-28] MEDS: ASPIRIN 81 MG TAB.CHEW PO SCH (08:18)
[2016-10-28] MEDS: FUROSEMIDE 40 MG/4 ML VIAL IV SCH (08:18)
[2016-10-28] MEDS: PANTOPRAZOLE 40 MG VIAL IV SCH (08:18)
[2016-10-28] MEDS: HYDROGEL DRESSING 90 GM TUBE TP SCH (08:19)
[2016-10-28] MEDS: NEOMY SULF/BACITRAC ZN/POLY 15 GM TUBE TP SCH (08:19)
[2016-10-28 10:19] LABS: CALCIUM, SERUM 7.2 mg/dL (8.5-10.1); POTASSIUM 3.1 mmol/L (3.5-5.1)
[2016-10-28] MEDS: VANCOMYCIN 0.75 GM in IV D5W 250 ML IV SCH (11:10)
[2016-10-28] MEDS ORDERED: SECONDARY IV SET 1 EA INFUS.SET MC ONE ×2 (15:01→15:57)
[2016-10-28] MEDS: SOD FERRIC GLUC 125 MG in IV NS 0.9% 100 ML IV SCH (15:06)
[2016-10-28] MEDS: POTASSIUM CL. PREMIX PERIPHER. 50 ML IV SCH ×4 (16:09→20:12)
[2016-10-28 16:57] VITALS: BP 126/64
--- NOTE | 2016-10-28 19:10 | NUR ---
MS RN OPENING NOTES: RECEIVED PT IN BED ASLEEP. PT IS ON 2LPM VIA NC AND IS TOLERATING WELL. PT HAS DÍAZ CATH AND IS ATTACHED TO DRAINAGE BAG. PT IS ALSO ON TELE OBSERVATION. PT HAS NEHAL MIDLINE AND IS BEING INFUSED WITH IV D 5 1/2 NS 1,000ML AT 75ML/HR. AM NURSED ENDORSED THAT ONE MORE POTASSIUM IS TO BE GIVEN D/T LATE ADMINISTERING. NO SIGNS OR SYMPTOMS OF DISTRESS AT THIS TIME. WILL CONTINUE TO MONITOR PT.
--- NOTE | 2016-10-28 19:32 | NUR ---
PT IN STABLE CONDITION, NO SOB OR DISTRESS NOTED, NO PAIN OR DISCOMFORT, INDORSED TO NEXT SHIFT FOR FREDERICK.
[2016-10-28 19:50] VITALS: BP 121/68
[2016-10-28 20:00] VITALS: BP 121/68
[2016-10-28] MEDS: ENOXAPARIN SODIUM 40 MG/0.4 ML DISP.SYRIN SQ SCH (20:23)
[2016-10-28] MEDS: IV D5/0.45 NACL 1,000 ML IV PRN (21:18)
[2016-10-28] MEDS ORDERED: IV SET PRIMARY PUMP SET 1 EA INFUS.SET MC ONE (21:23)
[2016-10-29] MEDS: BLOOD SUGAR DIAGNOSTIC 1 EACH STRIP IN SCH ×6 (00:02→20:06)
[2016-10-29] MEDS: ALBUTEROL FS 2.5 MG/0.5 ML VIAL.NEB NEB SCH ×2 (01:23→20:19)
[2016-10-29] MEDS: IPRATROPIUM NEB FS 0.5 MG/2.5 ML AMPUL.NEB NEB SCH ×2 (01:23→20:19)
--- NOTE | 2016-10-29 04:27 | NUR ---
MS RN NOTES: BLOOD SUGAR WAS 48. SPOKE TO FIRST LEVELER LOUANN VALLES. GOT AN ORDER FOR DEXTROSE INJ 50% IVP AND NA CHLORIDE 154 MEQ IN IN DEXTROSE 10% AT 75ML/HR.
[2016-10-29] MEDS ORDERED: DEXTROSE 50%-WATER 50 ML DISP.SYRIN ONE (04:32)
--- NOTE | 2016-10-29 04:37 | NUR ---
MS RN NOTE: DEXTROSE INJ 50% IVP WAS GIVEN. WILL CONTINUE TO MONITOR PT.
[2016-10-29] MEDS ORDERED: IV SET PRIMARY PUMP SET 1 EA INFUS.SET MC ONE (04:48)
[2016-10-29] MEDS ORDERED: IV 10% DEXTROSE 1,000 ML IV ONE (04:56)
[2016-10-29] MEDS ORDERED: Sodium Chloride 77 MEQ in IV 10% DEXTROSE 1,000 ML IV PRN (05:00)
[2016-10-29] MEDS ORDERED: DEXTROSE 50%-WATER 50 ML DISP.SYRIN IVP ONE ×2 (05:00→07:30)
[2016-10-29] MEDS: Sodium Chloride 154 MEQ in IV 10% DEXTROSE 1,000 ML IV PRN (05:10)
--- NOTE | 2016-10-29 05:10 | NUR ---
MS RN NOTES: STARTED TO INFUSE PT WITH NA CHLORIDE 154 MEQ IN IV DEXTROSE 10% 1,000 ML AT 75 ML/HR. WILL CONTINUE TO MONITOR PT.
[2016-10-29] MEDS ORDERED: SECONDARY IV SET 1 EA INFUS.SET MC ONE ×3 (05:27→16:20)
[2016-10-29] MEDS: PIPERACILLIN /TAZOBACTAM 3.375 G in IV D5W 50 ML IV SCH ×4 (05:29→23:21)
[2016-10-29] MEDS: VANCOMYCIN 0.75 GM in IV D5W 250 ML IV SCH ×2 (06:32→22:12)
[2016-10-29 07:00] LABS: BASOPHILS % (AUTO) 0.1 % (0.0-2.0); HEMATOCRIT 36 % (39-51); HEMOGLOBIN 11.3 g/dL (13.5-17.5); LYMPHOCYTES # (AUTO) 0.6 /CMM (0.8-4.8); LYMPHOCYTES % (AUTO) 6.7 % (20.0-44.0); MEAN CORPUSCULAR HEMOGLOBIN 24 PG (26.0-33.0); MEAN CORPUSCULAR HGB CONC 32 g/dl (31.0-36.0); MEAN CORPUSCULAR VOLUME 75 fL (80-96); MONOCYTES # (AUTO) 0.2 /CMM (0.1-1.30); MONOCYTES % (AUTO) 1.7 % (2.0-12.0); NEUTROPHILS # (AUTO) 8.5 /CMM (1.8-8.9); NEUTROPHILS % (AUTO) 91.5 % (43.0-81.0); PLATELET COUNT (AUTO) 222 /CMM (150-450); RDW COEFFICIENT OF VARIATION 29.2 (11.5-15.0); RED BLOOD CELL COUNT(AUTO) 4.74 MIL/uL (4.5-6.0); WHITE BLOOD COUNT (AUTO) 9.2 K/uL (4.3-11.0)
--- NOTE | 2016-10-29 07:01 | NUR ---
MS RN NOTES: BLOOD SUGAR WAS 47. CALLED AND SPOKE TO HVAC COMMERCIAL SALESPERSON HARLEEN FIGUEREDO. GOT ORDER FOR DEXTROSE INJ 50% SYRINGE IVP ONCE AND TO CHECK BLOOD SUGAR AGAIN IN ONE HOUR. WILL ENDORSE TO AM NURSE TO CHECK BLOOD SUGAR AFTER ADMINISTERING.
[2016-10-29 07:07] LABS: CALCIUM, SERUM 7.5 mg/dL (8.5-10.1); CREATININE 0.9 mg/dL (0.6-1.3); POTASSIUM 3.5 mmol/L (3.5-5.1)
--- NOTE | 2016-10-29 07:21 | NUR ---
MS RN NOTES: ADMINISTERED DEXTROSE INJ 50% SYRINGE IVP PER ACCOUNT GENERAL MANAGER HARLEEN FIGUEREDO. ENDORSED TO AM NURSE FOR RE-CHECKING BLOOD SUGAR AGAIN AFTER AN HOUR.
--- NOTE | 2016-10-29 07:25 | NUR ---
MS RN NOTE: ALL NEEDS WERE ATTENDED AND ANTICIPATED FOR. CALL LIGHT WITHIN PT'S REACH. BED KEPT IN LOCKED, LOWEST POSITION, AND SIDE RAILS X 2 UP. DÍAZ CATH ATTACHED TO DRAINAGE BAG. OUTPUT WAS 300ML. PT HAS NEHAL MIDLINE AND IS PATENT AND INTACT. FLUIDS ARE TO BE INFUSED WITH D 10 AT 75ML/HR. PT ALSO HAS R FOREARM #22G AND IS PATENT AND INTACT AND IS ON HEP LOCK. PT KEPT CLEAN, DRY, AND COMFORTABLE. ENDORSED TO AM NURSE FOR FREDERICK.
--- NOTE | 2016-10-29 07:39 | NUR ---
RN OPENING NOTES SPACE SYSTEMS OPERATIONS SUPERINTENDENT OPENING NOTES RECEIVED PATIENT AWAKE IN BED, HEAD OF BED ELEVATED. ALERT AND ORIENTED X 1-2. PATIENT ON 2LPM VIA NC. PATIENT ABLE TO MAKE NEEDS KNOWN. CALL LIGHT WITHIN PATIENT'S REACH. WILL CONTINUE TO MONITOR ACCORDINGLY.
[2016-10-29 08:00] VITALS: BP 140/63
[2016-10-29] MEDS: NEOMY SULF/BACITRAC ZN/POLY 15 GM TUBE TP SCH (08:47)
[2016-10-29] MEDS: HYDROGEL DRESSING 90 GM TUBE TP SCH (08:48)
[2016-10-29] MEDS: FUROSEMIDE 40 MG/4 ML VIAL IV SCH (08:48)
[2016-10-29] MEDS: PANTOPRAZOLE 40 MG VIAL IV SCH (08:48)
[2016-10-29] MEDS: ASPIRIN 81 MG TAB.CHEW PO SCH (08:53)
[2016-10-29] MEDS ORDERED: IOHEXOL-300 100 ML VIAL IV ONE (10:22)
[2016-10-29] MEDS ORDERED: IV NS 0.9% 250 ML IV ONE (10:22)
--- NOTE | 2016-10-29 11:30 | NUR ---
RN NOTES CT SCAN WITH CONTRAST PERFORMED
--- NOTE | 2016-10-29 15:30 | NUR ---
RN NOTES PATIENT IS ASLEEP COMFORTABLE WITH NO SOB OR DISTRESS NOTED.
[2016-10-29 16:00] VITALS: BP 140/79
[2016-10-29] MEDS: SOD FERRIC GLUC 125 MG in IV NS 0.9% 100 ML IV SCH (16:25)
--- NOTE | 2016-10-29 18:55 | NUR ---
RN CLOSING NOTES ALL NEEDS PROVIDED, ATTENDED AND ANTICIPATED. KEPT PATIENT CLEAN AND COMFORTABLE IN BED, CALL LIGHT WITHIN PATIENT REACH, WILL CONTINUE TO MONITOR ACCORDINGLY. ENDORSED TO NEXT SHIFT RN TO CONTINUE CARE
--- NOTE | 2016-10-29 19:15 | NUR ---
MS RN OPENING NOTES: RECEIVED PT IN BED AWAKE AND LAYING DOWN. PT HAS 2LPM VIA NC AND IS TOLERATING WELL. CALL LIGHT WITHIN PT'S REACH. BED KEPT IN LOCKED, LOWEST POSITION, AND SIDE RAILS X 2 UP. PT KEPT CLEAN, DRY, AND COMFORTABLE. PT HAS R FOREARM #22G AND IS PATENT AND INTACT AND ON HEP LOCK. PT ALSO HAS NEHAL MIDLINE AND IS PATENT AND INTACT AND IS BEING INFUSED WITH IV DEXTROSE 10% 10,000ML AT 75 ML/HR. PT IS KEPT NPO. NO SIGNS OR SYMPTOMS OF DISTRESS AT THIS TIME. WILL CONTINUE TO MONITOR PT.
[2016-10-29 20:00] VITALS: BP 112/63
[2016-10-29 20:05] VITALS: BP 112/63
[2016-10-29] MEDS: ENOXAPARIN SODIUM 40 MG/0.4 ML DISP.SYRIN SQ SCH (20:07)
[2016-10-30] MEDS: BLOOD SUGAR DIAGNOSTIC 1 EACH STRIP IN SCH ×6 (00:35→20:21)
--- NOTE | 2016-10-30 02:00 | NUR ---
MS/RN NOTES BS RE CHECKED AT 67, PROVIDED ORANGE JUICE WITH IV FLUIDS AT 10% DEXTROSE AT 75 ML/HR. WILL CONTINUE TO MONITOR.
[2016-10-30] MEDS: ALBUTEROL FS 2.5 MG/0.5 ML VIAL.NEB NEB SCH ×4 (02:01→19:46)
[2016-10-30] MEDS: IPRATROPIUM NEB FS 0.5 MG/2.5 ML AMPUL.NEB NEB SCH ×4 (02:01→19:46)
[2016-10-30] MEDS: Sodium Chloride 154 MEQ in IV 10% DEXTROSE 1,000 ML IV PRN (03:26)
[2016-10-30] MEDS: PIPERACILLIN /TAZOBACTAM 3.375 G in IV D5W 50 ML IV SCH (05:00)
--- NOTE | 2016-10-30 07:10 | NUR ---
MS RN NOTES: ALL NEEDS WERE ANTICIPATED FOR. PT IS IN BED AWAKE WITH 2LPM VIA NC AND IS TOLERATING WELL. EXPLAINED TO PT THAT THE PILLOWS ARE TO HELP RELIEVE PRESSURE AND OFFLOAD HIS HEELS. PT KEPT CLEAN, DRY, AND COMFORTABLE. DÍAZ CATH OUTPUT WAS 450 ML. DÍAZ ATTACHED TO DRAINAGE BAG. PT HAS R FOREARM #22G SALINE LOCK AND RIGHT UPPER ARM MIDLINE AND IS PATENT AND INTACT. IT IS BEING INFUSED WITH IV 10% DEXTROSE AT 75ML/HR. CALL LIGHT WITHIN PT'S REACH. BED KEPT IN LOCKED, LOWEST POSITION, AND SIDE RAILS X 2 UP. ENDORSED TO AM NURSE FOR FREDERICK.
--- NOTE | 2016-10-30 07:38 | NUR ---
AM RN NOTE Received patient awake, A/O X1 verbally responsive. On O2 2L/min via NC. Resp even and non-labored. Denies any pain at this time. IV site intact and patent. Bed in low locked position. Will continue to monitor.
[2016-10-30 08:00] VITALS: BP 123/69
[2016-10-30 08:01] LABS: EOSINOPHILS % (AUTO) 0.1 % (0.0-6.0); HEMATOCRIT 35 % (39-51); HEMOGLOBIN 11.2 g/dL (13.5-17.5); LYMPHOCYTES # (AUTO) 0.6 /CMM (0.8-4.8); LYMPHOCYTES % (AUTO) 7.7 % (20.0-44.0); MEAN CORPUSCULAR HEMOGLOBIN 24 PG (26.0-33.0); MEAN CORPUSCULAR HGB CONC 32 g/dl (31.0-36.0); MEAN CORPUSCULAR VOLUME 74 fL (80-96); MONOCYTES # (AUTO) 0.2 /CMM (0.1-1.30); NEUTROPHILS # (AUTO) 6.9 /CMM (1.8-8.9); NEUTROPHILS % (AUTO) 89.2 % (43.0-81.0); PLATELET COUNT (AUTO) 219 /CMM (150-450); RDW COEFFICIENT OF VARIATION 28.5 (11.5-15.0); WHITE BLOOD COUNT (AUTO) 7.8 K/uL (4.3-11.0)
[2016-10-30] MEDS: FUROSEMIDE 40 MG/4 ML VIAL IV SCH (08:07)
[2016-10-30] MEDS: PANTOPRAZOLE 40 MG VIAL IV SCH (08:07)
[2016-10-30] MEDS: ASPIRIN 81 MG TAB.CHEW PO SCH (08:09)
[2016-10-30] MEDS: HYDROGEL DRESSING 90 GM TUBE TP SCH (08:10)
[2016-10-30] MEDS: NEOMY SULF/BACITRAC ZN/POLY 15 GM TUBE TP SCH (08:10)
[2016-10-30 08:31] LABS: CALCIUM, SERUM 7.2 mg/dL (8.5-10.1); CREATININE 0.7 mg/dL (0.6-1.3); POTASSIUM 3.1 mmol/L (3.5-5.1)
[2016-10-30] MEDS ORDERED: SECONDARY IV SET 1 EA INFUS.SET MC ONE (09:28)
[2016-10-30] MEDS: POTASSIUM CL. PREMIX PERIPHER. 50 ML IV SCH ×4 (09:34→13:25)
--- NOTE | 2016-10-30 10:16 | NUR ---
AM RN NOTE Dr. Hill assessing pt and continue pt on Med-Surg status per him ().
--- NOTE | 2016-10-30 12:49 | NUR ---
JEREMIAS contacted [facility] historic site administrator Adam to inquire if pt. has any family. Per Adam, pt. has no family. According to Adam, Pt. was discharged from [facility] to [facility].
[2016-10-30] MEDS: SOD FERRIC GLUC 125 MG in IV NS 0.9% 100 ML IV SCH (14:43)
[2016-10-30 16:00] VITALS: BP 125/71
--- NOTE | 2016-10-30 18:19 | NUR ---
AM RN NOTE Patient lying in his bed, tolerated clear liquids well. IV sites intact and patent. F/C intact, draining with dark yellow colored urine. Will continue to monitor and endorse care to next shift.
--- NOTE | 2016-10-30 20:00 | NUR ---
MS/RN OPENING NOTES RECEIVED PATIENT IN BED, ALERT X1. REQUIRE ASSISTANCE AT ALL TIMES TO PROVIDE NEEDS. PROVIDE WARM BLANKET AND ON DÍAZ CATHETER WITH OUTPUT. NO S/S OF DISTRESS. WILL MONITOR S/S OF HYPO/HYPERGLYCEMIA. AND REPORT ANY CHANGES.
[2016-10-30 20:20] VITALS: BP 121/78
[2016-10-30] MEDS: ENOXAPARIN SODIUM 40 MG/0.4 ML DISP.SYRIN SQ SCH (22:27)
--- NOTE | 2016-10-30 22:30 | NUR ---
MS/RN NOTES MD PRODUCTION ASSOCIATE MADE AWARE REGARDING PATIENT WAS ADMINISTERED LOVENOX SCHEDULED AND MADE AWARE ABOUT NOTED BLOOD IN URINE.
[2016-10-31] MEDS: BLOOD SUGAR DIAGNOSTIC 1 EACH STRIP IN SCH ×6 (00:16→20:48)
--- NOTE | 2016-10-31 00:16 | NUR ---
MS/RN NOTES BLOOD SUGAR CHECK WITH RESULT OF 56. MD DENTAL LABORATORY WORKER INFORMED AND ORDER TO GIVE ORANGE JUICE AND CONTINUE WITH IV 10% DEXTROSE AT 75ML/HR. AND RE CHECK BS LEVEL.
[2016-10-31] MEDS: Sodium Chloride 154 MEQ in IV 10% DEXTROSE 1,000 ML IV PRN ×2 (00:34→18:46)
[2016-10-31] MEDS: ALBUTEROL FS 2.5 MG/0.5 ML VIAL.NEB NEB SCH ×4 (00:54→20:00)
[2016-10-31] MEDS: IPRATROPIUM NEB FS 0.5 MG/2.5 ML AMPUL.NEB NEB SCH ×4 (00:55→20:01)
--- NOTE | 2016-10-31 05:00 | NUR ---
MS RN NOTE GOT REPORT FROM ARIN HANCOCK FOR FREDERICK
--- NOTE | 2016-10-31 07:34 | NUR ---
MS RN NOTE NO ACUTE DISTRESS PRESENT SINCE 0500. ENDORSED TO DAY SHIFT FOR FREDERICK.
--- NOTE | 2016-10-31 07:40 | NUR ---
MS RN OPENING NOTE PATIENT IS ALERT AND ORIENTED x1-2. NO PAIN AT THIS TIME. NO SOB OR DISTRESS NOTED. ABLE TO COMMUNICATE NEEDS. CALL LIGHT WITHIN REACH. SAFETY MEASURES IMPLEMENTED. DÍAZ CATHETER IN PLACE. IV INTACT AND PATENT NO REDNESS OR SWELLING NOTED. WILL CONTINUE TO MONITOR
[2016-10-31] MEDS: FUROSEMIDE 20 MG TABLET PO SCH (08:07)
[2016-10-31 08:08] LABS: CALCIUM, SERUM 7.4 mg/dL (8.5-10.1); CREATININE 0.7 mg/dL (0.6-1.3); POTASSIUM 3.6 mmol/L (3.5-5.1)
[2016-10-31] MEDS: HYDROGEL DRESSING 90 GM TUBE TP SCH (08:08)
[2016-10-31] MEDS: PANTOPRAZOLE 40 MG VIAL IV SCH (08:08)
[2016-10-31] MEDS: ASPIRIN 81 MG TAB.CHEW PO SCH (08:08)
[2016-10-31] MEDS: NEOMY SULF/BACITRAC ZN/POLY 15 GM TUBE TP SCH (08:08)
--- NOTE | 2016-10-31 12:15 | NUR ---
Social service consult requested by DR. Hill for possible placement. Pt. does not have a DPOA and lacks capacity to make medical decisions at this time. SW forwarded the consult to case operator Calista for placement request by Dr. Hill.
[2016-10-31] MEDS: SOD FERRIC GLUC 125 MG in IV NS 0.9% 100 ML IV SCH (15:42)
[2016-10-31 16:00] VITALS: BP 137/79
--- NOTE | 2016-10-31 16:47 | NUR ---
MS RN NOTE CHECKED PATIENT'S BLOOD SUGAR AT 44. GAVE ORANGE JUICE AND NOTIFIED MD AND CHARGE NURSE. SUGAR RECHECKED AT 61. WILL ENDORSE TO FACILITIES OFFICER NURSE
--- NOTE | 2016-10-31 18:17 | NUR ---
MS RN CLOSING NOTE PATIENT IS ALERT AND ORIENTED x1. NO PAIN AT THIS TIME. NO SOB OR DISTRESS NOTED. CALL LIGHT WITHIN REACH AT ALL TIMES. SAFETY MEASURES IMPLEMENTED. PATIENT REFUSING TO BE REPOSITIONED IN BED, INFORMED PATIENT RISKS AND BENEFITS. PATIENT STILL REFUSED. IV INTACT AND PATENT NO REDNESS OR SWELLING NOTED. WILL ENDORSE TO NAILING MACHINE FEEDER NURSE
--- NOTE | 2016-10-31 19:15 | NUR ---
RN NOTES RECEIVED PT ASLEEP EASILY AROUSABLE, BREATHING REGULAR AND UNLABORED, NO SIGNS OF DISTRESS NOTED. ON O2 INHALATION AT 2LPM VIA NC AND TOLERATED WELL. PT ALERT AND ORIENTED X2, DENIES PAIN AND DISCOMFORT AT THIS TIS TIME. IV ACCESS ON RIGHT UPPER ARM MIDLINE AND RIGHT FORE ARM PATENT AND INTACT. ON CLEAR LIQUID DIET AND TOLERATED WELL. DÍAZ CATH INTACT WITH CLEAR URINE OUTPUT. BOTH FEET OFFLOADED. REQUIRE ASSISTANCE TO PROVIDE CARE. KEPT COMFORTABLE AND ATTENDED. WILL CONTINUE TO MONITOR PT.
[2016-10-31 20:00] VITALS: BP 132/70
[2016-10-31] MEDS: ENOXAPARIN SODIUM 40 MG/0.4 ML DISP.SYRIN SQ SCH (20:35)
--- NOTE | 2016-10-31 20:48 | NUR ---
RN NOTES BLOOD SUGAR CHECKED 87 MG/DL, PT ALERT , DENIES ANY DISCOMFORT, NO SIGNS OF HYPOGLYCEMIA NOTED. OFFERED FRUIT JUICE AT TIMES AND TOLERATED WELL.WILL CONTINUE TO MONITOR PT.
[2016-10-31 22:00] VITALS: BP 132/70
[2016-11-01] MEDS: BLOOD SUGAR DIAGNOSTIC 1 EACH STRIP IN SCH ×4 (00:55→13:00)
--- NOTE | 2016-11-01 00:55 | NUR ---
RN NOTES BLOOD SUGAR CHECKED 104 MG/DL, NO SIGNS OF HYPOGLYCEMIA NOTED. OFFERED FRUIT JUICE AT TIMES AND TOLERATED WELL. WILL CONTINUE TO MONITOR PT.
[2016-11-01] MEDS: ALBUTEROL FS 2.5 MG/0.5 ML VIAL.NEB NEB SCH ×3 (01:16→13:16)
[2016-11-01] MEDS: IPRATROPIUM NEB FS 0.5 MG/2.5 ML AMPUL.NEB NEB SCH ×3 (01:16→13:16)
--- NOTE | 2016-11-01 05:16 | NUR ---
RN NOTES BLOOD SUGAR CHECKED 76 MG/DL, PT ALERT AND VERBAL, NO SIGNS OF HYPOGLYCEMIA NOTED. ORANGE JUICE OFFERED AND TOLERATED WELL. WILL CONTINUE TO MONITOR PT.
[2016-11-01] MEDS: Sodium Chloride 154 MEQ in IV 10% DEXTROSE 1,000 ML IV PRN (06:32)
--- NOTE | 2016-11-01 07:07 | NUR ---
RN NOTES PT ASLEEP, BREATHING REGULAR AND UNLABORED, NO SIGNS OF DISTRESS NOTED. NO COMPLAIN OF PAIN, NO EPISODE OF NAUSEA AND VOMITING. PT COMPLAINS OF PAIN WHEN MOVED, PT REFUSED TO BE MOVED, REPOSITIONED AND OFF LOAD HEELS.NO SIGNS OF HYPOGLYCEMIA NOTED, PT WAS OFFERED WITH FRUIT JUICE TO KEEP BLOOD SUGAR WNL. KEPT CLEAN AND DRY. DUE MEDS GIVEN. ALL NEEDS MET. WILL ENDORSED TO MORNING RN FOR CONTINUITY OF CARE.
--- NOTE | 2016-11-01 07:33 | NUR ---
MS RN OPENING NOTE PATIENT IS ALERT AND ORIENTED X1. PERIODS OF CONFUSION. NO PAIN AT THIS TIME. NO SOB OR DISTRESS NOTED. CALL LIGHT WITHIN REACH. SAFETY MEASURES IMPLEMENTED. ABLE TO COMMUNICATE NEEDS. DÍ[place] CATHETER IN PLACE, NO LEAKING OR BLOOD NOTICED. IV INTACT AND PATENT NO REDNESS OR SWELLING NOTED. WILL CONTINUE TO MONITOR.
[2016-11-01 07:58] LABS: CALCIUM, SERUM 7.4 mg/dL (8.5-10.1); CREATININE 0.6 mg/dL (0.6-1.3); POTASSIUM 3.8 mmol/L (3.5-5.1)
[2016-11-01 08:00] VITALS: BP 126/79
[2016-11-01] MEDS: ASPIRIN 81 MG TAB.CHEW PO SCH (08:43)
[2016-11-01] MEDS: FUROSEMIDE 20 MG TABLET PO SCH (08:43)
[2016-11-01] MEDS: PANTOPRAZOLE 40 MG VIAL IV SCH (08:43)
[2016-11-01] MEDS: HYDROGEL DRESSING 90 GM TUBE TP SCH (08:43)
[2016-11-01] MEDS: NEOMY SULF/BACITRAC ZN/POLY 15 GM TUBE TP SCH (08:44)
--- NOTE | 2016-11-01 14:36 | NUR ---
MS CONCRETE PAVEMENT INSTALLER NOTE PATIENT IS ALERT AND ORIENTED x1. NO PAIN AT THIS TIME. NO SOB OR DISTRESS NOTED. ON 2L/MIN OF OXYGEN VIA NASAL CANNULA. NO BELONGINGS WITH PATIENT. IV REMOVED AND SKIN INTACT. DÍ[place] CATHETER IN PLACE PER RN CLINICAL DOCUMENTATION SPECIALIST. BEING TRANSFERRED TO SNF ([facility]) GAVE REPORT TO [place] RN CLINICAL DOCUMENTATION SPECIALIST. ALL DISCHARGE INSTRUCTIONS GIVEN TO RN CLINICAL DOCUMENTATION SPECIALIST. LEFT WITH TWO DIRECTOR COUNSELING [facility].
== END 2016-11-01 14:30 | DRG 279 ==
LOC: ER 15:33 → TELE 17:43 → MED 10-26 17:29 → TELE 10-26 23:32 → MED 10-27 09:57
PROVIDERS: ADMIT Family Medicine; ATTEND Family Medicine
PROC: 05H533Z Insertion of Infusion Device into Right Subclavian Vein, Percutaneous Approach (ICD-10-PCS; principal; 2016-10-24)
DX: K72.00 Acute and subacute hepatic failure without coma (principal); J96.01 Acute respiratory failure with hypoxia; I21.4 Non-ST elevation (NSTEMI) myocardial infarction; E43 Unspecified severe protein-calorie malnutrition; G92 Toxic encephalopathy; I50.33 Acute on chronic diastolic (congestive) heart failure; J18.9 Pneumonia, unspecified organism; E87.0 Hyperosmolality and hypernatremia; C18.0 Malignant neoplasm of cecum; J91.0 Malignant pleural effusion; R18.8 Other ascites; C78.00 Secondary malignant neoplasm of unspecified lung; C78.7 Secondary malignant neoplasm of liver and intrahepatic bile duct; E87.2 Acidosis; K74.60 Unspecified cirrhosis of liver; K27.9 Peptic ulcer, site unspecified, unspecified as acute or chronic, without hemorrhage or perforation; K21.9 Gastro-esophageal reflux disease without esophagitis; F29 Unspecified psychosis not due to a substance or known physiological condition; I25.10 Atherosclerotic heart disease of native coronary artery without angina pectoris; D63.8 Anemia in other chronic diseases classified elsewhere; I73.9 Peripheral vascular disease, unspecified; K56.60 Unspecified intestinal obstruction; Z87.11 Personal history of peptic ulcer disease; Z68.20 Body mass index [BMI] 20.0-20.9, adult; I11.0 Hypertensive heart disease with heart failure; L98.8 Other specified disorders of the skin and subcutaneous tissue; L89.152 Pressure ulcer of sacral region, stage 2; S51.001A Unspecified open wound of right elbow, initial encounter; X58.XXXA Exposure to other specified factors, initial encounter; Y93.9 Activity, unspecified; Y92.129 Unspecified place in nursing home as the place of occurrence of the external cause; R23.0 Cyanosis; R41.0 Disorientation, unspecified; J44.0 Chronic obstructive pulmonary disease with (acute) lower respiratory infection; K57.30 Diverticulosis of large intestine without perforation or abscess without bleeding; J44.1 Chronic obstructive pulmonary disease with (acute) exacerbation
CPT/HCPCS: 36415; 36600; 70470-TC; 71010-TC; 80048-TC; 80053-TC; 80076-TC; 80202-TC; 82105; 82140-TC; 82378; 82728-TC; 82746; 82945-TC; 82962-TC; 83540-TC; 83605-TC; 83735-TC; 83880; 84100-TC; 84439-TC; 84443-TC; 84484-TC; 85025-TC; 85730-TC; 87040-TC; 87081-TC; 93307-TC; 94799-TC; A4606; A6248; A6402; A6403; C9113; J1650; J1940; J2543; J2916; J3370; J3480; J3490; J7030; J7040; J7050; J7060; Q9967; Z7610